=== PATIENT | female | born 1930 | race Caucasian/White ===

== ENCOUNTER 2021-06-03 20:29 | Inpatient (IN) | payer OTHER ==
[2021-06-03 14:53] VITALS: BP 103/70
[2021-06-03] MEDS ORDERED: SCOPOLAMINE 1.5MG PATCH. TD PRN (23:30)
[2021-06-03] MEDS ORDERED: MORPHINE SULFATE 20 MG/ML CONC SOLUTION. PO/SL PRN ×2 (23:30)
[2021-06-03] MEDS ORDERED: HALOPERIDOL LACTATE 5 MG/ML VIAL. IVP PRN ×3 (23:30)
[2021-06-03] MEDS ORDERED: NALOXONE 0.4 MG/ML VIAL. IV PRN (23:30)
[2021-06-03] MEDS ORDERED: MORPHINE SULFATE 4 MG/ML INJ. IVP PRN (23:30)
[2021-06-03] MEDS ORDERED: 0.9 % SODIUM CHLORIDE 10 ML DISP.SYRIN. IV PRN (23:30)
[2021-06-03] MEDS ORDERED: ACETAMINOPHEN 650 MG SUPP.RECT. PR PRN (23:30)
[2021-06-03] MEDS ORDERED: BISACODYL 10 MG SUPP.RECT. PR PRN (23:30)
[2021-06-03] MEDS ORDERED: ACETAMINOPHEN 650 MG/20.3 ML SOLUTION. PEG PRN (23:30)
[2021-06-03] MEDS ORDERED: ATROPINE 1% OPHTH SOLUTION 5ML BOTTLE. SL PRN (23:30)
[2021-06-03] MEDS ORDERED: PROCHLORPERAZINE 10 MG/2 ML VIAL. IVP PRN (23:30)
[2021-06-03] MEDS ORDERED: SODIUM PHOSPHATES 19/7GM 133 ML ENEMA. PR PRN (23:30)
[2021-06-03] MEDS ORDERED: IV NORMAL SALINE 1000ML BAG 1,000 ML IV SCH (23:30)
[2021-06-03] MEDS ORDERED: ACETAMINOPHEN 325 MG TABLET. PO PRN ×2 (23:30)
[2021-06-03] MEDS ORDERED: MORPHINE SULFATE 2 MG/ML INJ. IVP PRN (23:30)
[2021-06-03] MEDS ORDERED: ONDANSETRON PF 4 MG/2 ML VIAL. IVP PRN (23:30)
[2021-06-04] MEDS: MORPHINE SULFATE 30 ML IV PRN ×3 (03:24→09:09)
--- NOTE | 2021-06-04 06:19 | PDOC1 ---
History and Physical Date of Admission Date of Admission DATE: 06/04/21 TIME: 06:07 Identification/Chief Complaint Chief Complaint Hospice care Source Source: Caregiver, Chart review History of Present Illness History of Present Illness Patient is a 89 year old female with history of CHF, dementia who presented to ER following what was described as a choking episode on an apple. She arrived with 6 L/min nasal cannula through her mouth with EMS. Mental status was slowly improving and she started to answer questions. Patient's daughter (JONNATHAN) states she has been having more and more difficulty with speech and not recognizing relatives and loved ones. After discussion with family and DPOA, they would like to have her admitted for comfort care. She was transitioned to inpatient hospice. Assessment/Plan Assessment/Plan Impression: Cardiogenic shock NSTEMI (non-ST elevated myocardial infarction) ADVANCED DEMENTIA Acute hypoxic respiratory failure Fusiform infrarenal abdominal aortic aneurysm measuring 4.8 cm diameter PLAN ADMIT for comfort care per family wishes, attempt to place in [facility] inpatient hospice facility [facility], not available tonight per case mgt condition GRAVE Estimated length of life < 72 hrs iv morphine 2-3 mg q 2 hrs prn pain or air hunger Atropine gtts prn secretions long discussion with family in ER, will focus on comfort measures. o2 support, daughter is JONNATHAN, pt has been under [facility] care for last 2 yrs, how ever has had a recent marked decline in ADL'S AND Appetite D/W ER 43 min Past Medical History Past Medical History Severe Dementia, overactive bladder Past Surgical History Past Surgical History Reviewed with patient and family, but denies significant surgical history Family History Family History: Hypertension Social History Smoke: Quit ALCOHOL: other (Remote use) Drugs: None Current Medications Current Medications Current Medications Acetaminophen (Tylenol) 650 mg PRN Q6HRS PRN PO MILD PAIN / TEMP > 100.3'F; Start 06/03/21 at 23:30 Naloxone HCl (Narcan) 0.4 mg PRN Q2MIN PRN IV SEE INSTRUCTIONS; Start 06/03/21 at 23:30 Sodium Chloride 1,000 ml @ 25 mls/hr Q24H IV Last administered on 06/03/21at 23:30; Start 06/03/21 at 23:30 Morphine Sulfate 30 ml @ 0 mls/hr CONT PRN PRN IV PER PROTOCOL Last administered on 06/04/21at 03:24; Start 06/03/21 at 23:30 Morphine Sulfate (Roxanol Conc) 5 mg PRN Q2HRS PRN PO/SL MODERATE PAIN OR DYSPNEA; Start 06/03/21 at 23:30 Morphine Sulfate (Roxanol Conc) 10 mg PRN Q2HRS PRN PO/SL MODERATE PAIN OR DYSPNEA; Start 06/03/21 at 23:30 Morphine Sulfate (Morphine Sulfate) 2 mg PRN Q2HR PRN IVP PAIN OR DYSPNEA,1st CHOICE; Start 06/03/21 at 23:30 Morphine Sulfate (Morphine Sulfate) 4 mg PRN Q2HR PRN IVP PAIN OR DYSPNEA,1st CHOICE; Start 06/03/21 at 23:30 Lorazepam (Ativan Inj) 2 mg PRN Q4HRS PRN IVP ANXIETY / AGITATION; Start 06/03/21 at 23:30 Haloperidol Lactate (Haldol Inj) 1 mg PRN Q2HRS PRN IVP AGITATION, 2nd CHOICE; Start 06/03/21 at 23:30 Scopolamine (Transderm-Scop) 1 patch PRN Q72HRS PRN TD SECRETIONS Last administered on 06/04/21at 06:01; Start 06/03/21 at 23:30 Haloperidol Lactate (Haldol Inj) 1 mg PRN Q2HRS PRN IVP SEVERE DELIRIUM; Start 06/03/21 at 23:30 Haloperidol Lactate (Haldol Inj) 2 mg PRN Q2HRS PRN IVP SEVERE DELIRIUM; Start 06/03/21 at 23:30 Ondansetron HCl (Zofran) 4 mg PRN Q6HRS PRN IVP NAUSEA/VOMITING, 1st CHOICE; Start 06/03/21 at 23:30 Prochlorperazine Edisylate (Compazine) 10 mg PRN Q6HRS PRN IVP NAUSEA/VOMITING, 2nd CHOICE; Start 06/03/21 at 23:30 Bisacodyl (Dulcolax Supp) 10 mg PRN Q72HRS PRN UT CONSTIPATION, 1st CHOICE; Start 06/03/21 at 23:30 Sodium Monofluorophosphate (Fleet Adult) 133 ml PRN Q72HRS PRN UT CONSTIPATION, 2nd CHOICE; Start 06/03/21 at 23:30 Acetaminophen (Tylenol) 650 mg PRN Q6HRS PRN PO MILD PAIN/TEMP >100.4; Start 06/03/21 at 23:30; Status UNV Acetaminophen (Tylenol) 650 mg PRN Q6HRS PRN PEG MILD PAIN/TEMP >100.4; Start 06/03/21 at 23:30 Acetaminophen (Tylenol Supp) 650 mg PRN Q6HRS PRN UT MILD PAIN/TEMP >100.4; Start 06/03/21 at 23:30 Sodium Chloride (Normal Saline Flush) 10 ml QSHIFT PRN IV AFTER MEDS AND BLOOD DRAWS; Start 06/03/21 at 23:30 Atropine Sulfate (Isopto Atropine) 1 drop PRN Q2HR PRN SL SECRETIONS; Start 06/03/21 at 23:30 Allergies Allergies: Coded Allergies: codeine (Verified Allergy, Intermediate, 06/02/21) lisinopril (Verified Allergy, Intermediate, 06/02/21) rosuvastatin (Verified Allergy, Intermediate, 06/02/21) ROS Review of System General: YES: Fatigue, Malaise PSYCHOLOGICAL ROS: YES: Anxiety, Concentration difficultie, Depression, Disorientation, Memory difficulties Eyes: Yes Decreased vision; No Blurry vision, No Double vision, No Dry eyes, No Excessive tearing, No Eye Pain, No Itchy Eyes, No Loss of vision, No Photophobia, No Scotomata, No Uses contacts, No Uses glasses, No Other HEENT: No: Heacaches, Visual Changes, Hearing change, Nasal congestion, Nasal discharge, Oral lesions, Sinus pain, Sore Throat, Epistaxis, Sneezing, Snoring, Tinnitus, Vertigo, Vocal changes, Other ALLERGY AND IMMUNOLOGY: No: Hives, Insect Bite Sensitivity, Itchy/Watery Eyes, Nasal Congestion, Post Nasal Drip, Seasonal Allergies, Other Hematological and Lymphatic: No: Bleeding Problems, Blood Clots, Blood Transfusions, Brusing, Night Sweats, Pallor, Swollen Lymph Nodes, Other ENDOCRINE: No: Breast Changes, Galactorrhea, Hair Pattern Changes, Hot Flashes, Malaise/lethargy, Mood Swings, Palpitations, Polydipsia/polyuria, Skin Changes, Temperature Intolerance, Unexpected Weight Changes, Other Respiratory: No: Cough, Hemoptysis, Orthopnea, Pleuritic Pain, Shortness of breath, SOB with excertion, Sputum Changes, Stridor, Tachypnea, Wheezing, Other Cardiovascular: yes Chest Pain; No Palpitations, No Orthopnea, No Paroxysmal Noc. Dyspnea, No Edema, No Lt Headedness, No Other Gastrointestinal: No Nausea, No Vomiting, No Abdominal Pain, No Diarrhea, No Constipation, No Melena, No Hematochezia, No Other Genitourinary: No Dysuria, No Frequency, No Incontinence, No Hematuria, No Retention, No Discharge, No Urgency, No Pain, No Flank Pain, No Other, No , No , No , No , No , No , No Musculoskeletal: Yes Joint Stiffness; No Gait Disturbance, No Joint Pain, No Joint Swelling, No Muscle Pain, No Muscular Weakness, No Pain In:, No Swelling In:, No Other Neurological: Yes Behavorial Changes, Yes Bowel/Bladder ControlChng, Yes Confusion, Yes Gait Disturbance, Yes Memory Loss; No Dizziness, No Headaches, No Impaired Coord/balance, No Numbness/Tingling, No Seizures, No Speech Problems, No Tremors, No Visual Changes, No Weakness, No Other Skin: Yes Dry Skin; No Eczema, No Hair Changes, No Lumps, No Mole Changes, No Mottling, No Nail Changes, No Pruritus, No Rash, No Skin Lesion Changes, No Other, No Acne Physical Exam Physical Exam General: Alert, Cooperative, No acute distress HEENT: PERRLA, EOMI Lungs: Clear to auscultation, Normal air movement Heart: RRR, no murmurs Cardiovascular: S1, S2 Abdomen: Normal bowel sounds, Soft, No tenderness Extremities: No clubbing, No cyanosis Skin: No rashes, No significant lesion Neuro: Normal speech, Normal tone, Sensation intact Psych/Mental Status: Calm, confused Vitals Vitals Vital Signs Date Time Temp Pulse Resp B/P (MAP) Pulse Ox O2 Delivery O2 Flow Rate FiO2 06/03/21 19:35 Nasal Cannula 4.0 Images Images PATIENT: MARGARITA FERRARO ACCOUNT: [id number] : 1930 LOCATION: ER AGE: 89 SEX: F EXAM STATUS: REG ER ORD. PHYSICIAN: KAREN WILLS MD REASON: ? choking episode, hypoxia PROCEDURE: CHEST AP ONLY XR CHEST 1V CLINICAL INDICATIONS: Reason: ? choking episode, hypoxia COMPARISON: None available. Findings: There is mild diffuse interstitial thickening which may be due to acute/chronic interstitial pneumonitis or bronchitis. No lung consolidation or pleural effusion or pneumothorax is evident otherwise. Heart size is mildly prominent. There is prominence of the upper mediastinum. This may be related to rotation towards the left side and/or mediastinal fat given the larger body habitus. IMPRESSION: Acute/chronic interstitial pneumonitis or bronchitis. Cardiomegaly. This latter finding could be related to AP magnification and rotation towards the left side. Electronically signed by: Everett Marin MD (06/02/2021 1:36 PM) [id number] DICTATED and SIGNED BY: EVERETT MARIN MD DATE: 06/02/21 [id number] PATIENT: MARGARITA FERRARO ACCOUNT: [id number] : 1930 LOCATION: ER AGE: 89 SEX: F EXAM STATUS: REG ER ORD. PHYSICIAN: KAREN WILLS MD REASON: ? Aspiration, diffuse abd tenderness. PROCEDURE: CT CHEST ABDOMEN PELVIS WO CT CHEST_ABDOMEN_ AND PELVIS WITHOUT CONTRAST History: Question aspiration, diffuse abdominal tenderness. Comparison: None. Technique: Noncontrast CT of the chest, abdomen and pelvis. Findings: The pulmonary arteries are normal in caliber. Moderate aortic calcification without aneurysm. Heavy coronary artery calcification. Normal heart size. Moderate pericardial effusion. Unremarkable thyroid and esophagus. Bilateral prominent partially calcified mediastinal and hilar lymph nodes, for example 1.7 cm short axis right lower pretracheal lymph node with central calcification. No endobronchial masses. Multiple pulmonary nodules including partially calcified 9 mm right upper lobe pulmonary nodule (axial image 15) and noncalcified average diameter 13 mm left upper lobe noncalcified nodule. Bilateral lower lobe groundglass opacity. Interstitial lobular septal thickening. No pleural effusion or pneumothorax. The liver is unremarkable. The gallbladder is decompressed. Mild pancreatic atrophy. The spleen demonstrates a few punctate calcifications consistent with granulomatous disease. Right adrenal is normal. Indeterminate 9 mm nodularity at the left adrenal gland (axial series 4 image 28). Bilateral renal cortical atrophy. No hydronephrosis or nephrolithiasis. The bladder is completely decompressed. Unremarkable uterus and adnexa. The stomach and small bowel are unremarkable. No evidence of appendicitis. No colonic wall thickening or pericolonic inflammatory change. No significant diverticular disease. Heavy calcified atherosclerosis of the aorta and its branches. Fusiform infrarenal aortic aneurysm measures up to 4.8 cm diameter, approximately 6.6 cm length. No periaortic inflammatory changes. Soft tissues are unremarkable. Advanced multilevel degenerative changes in the spine. Impression: 1. Fusiform infrarenal abdominal aortic aneurysm measuring 4.8 cm diameter. No periaortic inflammatory changes. 2. Bilateral dependent lower lobe groundglass opacity likely represents atelectasis and pulmonary vascular congestion. Superimposed aspiration is not excluded. 3. Moderate pericardial effusion. 4. Numerous pulmonary nodules likely relate to granulomatous disease also seen with numerous prominent calcified mediastinal and hilar lymph nodes. A left upper lobe nodule average diameter 13 mm and is noncalcified. Malignancy is not excluded. Recommend 3 month follow-up chest CT to evaluate for stability. Additional consideration for PET/CT or biopsy. VTE Prophylaxis Ordered VTE Prophylaxis Devices: No VTE Pharmacological Prophylaxi: No Assessment/Plan Assessment/Plan Cardiogenic shock NSTEMI (non-ST elevated myocardial infarction) ADVANCED DEMENTIA Acute hypoxic respiratory failure Fusiform infrarenal abdominal aortic aneurysm measuring 4.8 cm diameter Plan: Admit to inpatient hospice Consult has been placed to [facility] hospice nurse to help with hospice orders IV morphine infusion, Ativan as needed, Atropine gtts prn secretions Justifications for Admission Other Justification SAHIL THACKER MD Jun 04, 2021 06:19
--- NOTE | 2021-06-04 08:00 | NUR ---
PATIENT IN BED, HOB ELEVATED, RESPIRATIONS LABORED AT APPROX. 8 PER MIN., LUNGS COARSE/WET, NO VERBAL RESPONSES AND NO EYE CONTACT, RADIAL AND PEDAL PULSES FAINT, PATIENTS DAUGHTER AT THE BEDSIDE AT THIS TIME, REQUESTED THAT THE PATIENT BE SUCTIONED AT THIS TIME, THIS NCR OPERATOR INFORMED HER THAT THE MOISTURE THAT SHE WAS HEARING IS DEEP IN HER THROAT AND THAT I WOULD SUCTION HER MOUTH, SCOPLAMINE PATCH REMAINS BEHIND PATIENTS' LEFT EAR, WILL MONITOR.
--- NOTE | 2021-06-04 09:55 | NUR ---
[id number] [employer] CALLED TO THE ROOM BY THE PATIENTS' DAUGHTER, SHE STATED "I THINK SHES' GONE", UPON ASSESSMENT THIS [employer] FOUND THE PATIENT TO HAVE NO RESPIRATIONS, NO PALPABLE PULSES, PUPILS NON REACTIVE, NO APICAL HEARTBEAT AND NO MOVEMENT OF CHEST. SECOND NURSE ON THE UNIT EXAMINED THE PATIENT AND PATIENT WAS PRONOUNCED AT 0956, EMOTIONAL SUPPORT GIVEN TO PATIENTS' DAUGHTER AT THE BEDSIDE, WILL INFORM MD, HOSPICE NURSE AND [place] [employer].
--- NOTE | 2021-06-04 14:35 | PDOC3 ---
Discharge Summary Visit Information Date of Admission: Jun 04, 2021 Date of Discharge: Jun 04, 2021 Brief Hospital Course Allergies Allergies Coded Allergies Type Severity Reaction Last Updated Verified codeine Allergy Intermediate 06/02/21 Yes lisinopril Allergy Intermediate 06/02/21 Yes rosuvastatin Allergy Intermediate 06/02/21 Yes Vital Signs Vital Signs Date Time Temp Pulse Resp B/P (MAP) Pulse Ox O2 Delivery O2 Flow Rate FiO2 06/04/21 09:09 8 90 Nasal Cannula 4.0 Brief Hospital Course Ms. Crawford is a 89 old female who presented with Cardiogenic shock, NSTEMI, advanced nature, acute hypoxic story failure, infrarenal abdominal aortic aneurysm. She was admitted to inpatient hospice with consultation to [facility] hospice nurse. She was treated with IV morphine infusions, and as needed Ativan. Unfortunately patient on the date of her transition to inpatient hospice at 0956. Discharge Information Condition at Discharge: / Disposition/Orders: Justicifation of Admission Dx: Justifications for Admission: Justification of Admission Dx: Yes SAHIL THACKER MD Jun 04, 2021 14:35
== END 2021-06-04 09:56 ==
LOC: 5 SOUTH 20:29
PROVIDERS: ADMIT Family Medicine; ATTEND Family Medicine
DX: I21.4 Non-ST elevation (NSTEMI) myocardial infarction (principal); J96.01 Acute respiratory failure with hypoxia; D71 Functional disorders of polymorphonuclear neutrophils; F03.90 Unspecified dementia, unspecified severity, without behavioral disturbance, psychotic disturbance, mood disturbance, and anxiety; I25.10 Atherosclerotic heart disease of native coronary artery without angina pectoris; I50.9 Heart failure, unspecified; I70.0 Atherosclerosis of aorta; I71.4 Abdominal aortic aneurysm, without rupture; J40 Bronchitis, not specified as acute or chronic; J84.89 Other specified interstitial pulmonary diseases; K86.89 Other specified diseases of pancreas; N32.81 Overactive bladder; R57.0 Cardiogenic shock; Z51.5 Encounter for palliative care; Z82.49 Family history of ischemic heart disease and other diseases of the circulatory system; Z88.8 Allergy status to other drugs, medicaments and biological substances
CPT/HCPCS: J2270; J7030; G0378